=== PATIENT | female | born 2000 | race Two or more races ===

== ENCOUNTER 2023-11-03 17:51 | Emergency (ER) | payer OTHER ==
[~2023-11-03] VITALS: Ht 157.5 cm; Wt 38.6 kg
[2023-11-03] MEDS ORDERED: PRENA1 TRUE CO1 EACH (17:59)
[2023-11-03 18:29] LABS: HEMATOCRIT 36.3 % (36.0-45.00); HEMOGLOBIN 12.6 g/dL (12.0-15.00); MEAN CELL VOLUME 89.2 fL (80.00-100.00); MEAN CORPUSCULAR HEMOGLOBIN 30.9 pg (27.00-32.0); MEAN CORPUSCULAR HGB CONC 34.6 g/dl (32.0-36.0); PLATELET COUNT 272 K/uL (150-450); RED BLOOD COUNT 4.07 M/uL (4.00-6.00); RED CELL DISTRIBUTION WIDTH 13.5 % (11.5-14.5)
[2023-11-03 18:45] LABS: URINE APPEARANCE Clear; URINE BILIRRUBIN Negative (NEGATIVE); URINE BLOOD Negative; URINE COLOR Yellow; URINE GLUCOSE Negative (NEGATIVE); URINE LEUKOCYTE Negative; URINE NITRATE Negative; URINE PROTEIN Negative (NEGATIVE); URINE UROBILINOGEN 0.2 E.U./dl
[2023-11-03 18:49] LABS: URINE EPITHELIAL CELLS 5.5 uL (0.0-38.8)
== END 2023-11-03 21:35 | disposition home or self-care (01) ==
LOC: ER 17:52 → EDBD 17:52 → ER 18:13
PROVIDERS: General Practice
DX: O20.9 Hemorrhage in early pregnancy, unspecified (principal)